=== PATIENT | male | born 1960 | race Caucasian/White ===

== ENCOUNTER 2016-07-25 10:00 | Inpatient (IN) | payer MEDICAID, OTHER ==
[~2016-07-25] VITALS: Ht 177.8 cm; Wt 90.8 kg
[~2016-07-25 10:00] MED LIST: ALLO300T PO; AMLO5TAB2 PO; ATEN50TA41 PO; CIPR500T3 PO; LISI40TA PO; METR500T4 PO; OXYC5CAP4 PO; SPIR50TA2 PO
[2016-07-25] MEDS ORDERED: SODIUM CHLORIDE FLUSH 10ML SYR IVF ONE (12:00)
[2016-07-25] MEDS ORDERED: SODIUM CHLORIDE 0.9% 1,000ML IVBOLUS ONE ×2 (12:00→17:00)
[2016-07-25 12:29] LABS: BLOOD UREA NITROGEN 10 mg/dL (7-18)
[2016-07-25 12:34] LABS: ASPARTATE AMINO TRANSFERASE 13 U/L (15-37)
[2016-07-25] MEDS ORDERED: OMNIPAQUE 350 MG/ML, 100ML BOTTLE ONE (13:18)
[2016-07-25 13:36] LABS: PATH.CAST-FLAG NOT PRESENT; SPERM-FLAG NOT PRESENT; SRC-FLAG NOT PRESENT; XTAL-FLAG NOT PRESENT; YLC-FLAG NOT PRESENT
[2016-07-25] MEDS ORDERED: ATEN-104 PO (14:09)
[2016-07-25] MEDS ORDERED: SODIUM CHLORIDE FLUSH 10ML SYR IVF PRN (14:30)
[2016-07-25] MEDS ORDERED: ONDANSETRON 2MG/ML, 2ML IVPush PRN (15:30)
[2016-07-25] MEDS ORDERED: ACETAMINOPHEN 325 MG TABLET PO PRN (15:30)
[2016-07-25] MEDS ORDERED: morphine SULFATE 10 MG/ML, 1ML IVPush PRN (15:30)
[2016-07-25 15:44] VITALS: BP 134/77
[2016-07-25 17:04] VITALS: BP 134/77
[2016-07-25] MEDS: NS + 20MEQ KCL 1,000 ML IV SCH (17:34)
[2016-07-25] MEDS ORDERED: ENALAPRILAT 1.25 MG/ML, 2ML IVPush PRN (19:30)
[2016-07-25 20:22] VITALS: BP 122/77
[2016-07-25] MEDS: FAMOTIDINE 20 MG/2 ML IVPush SCH (22:05)
[2016-07-26 02:00] VITALS: BP 114/66
[2016-07-26] MEDS: NS + 20MEQ KCL 1,000 ML IV SCH ×3 (03:07→21:00)
[2016-07-26 05:16] LABS: BLOOD UREA NITROGEN 9 mg/dL (7-18)
[2016-07-26 07:50] VITALS: BP 137/80
[2016-07-26] MEDS: AMLODIPINE 5 MG TABLET PO SCH (09:21)
[2016-07-26] MEDS: LISINOPRIL 20 MG TABLET PO SCH (09:21)
[2016-07-26] MEDS: ALLOPURINOL 300 MG TABLET PO SCH (09:22)
[2016-07-26] MEDS: ATENOLOL 50 MG TABLET PO SCH (09:22)
[2016-07-26] MEDS: FAMOTIDINE 20 MG/2 ML IVPush SCH ×2 (09:28→22:55)
[2016-07-26 12:52] VITALS: BP 127/84
[2016-07-26 19:40] VITALS: BP 128/78
[2016-07-26] MEDS: MAGNESIUM HYDROXIDE 8%, 30ML UDC PO SCH (22:55)
[2016-07-27 02:53] VITALS: BP 130/78
[2016-07-27 07:34] VITALS: BP 132/78
[2016-07-27] MEDS: FAMOTIDINE 20 MG/2 ML IVPush SCH ×2 (08:57→21:18)
[2016-07-27] MEDS: ATENOLOL 50 MG TABLET PO SCH (08:58)
[2016-07-27] MEDS: AMLODIPINE 5 MG TABLET PO SCH (09:00)
[2016-07-27] MEDS: ALLOPURINOL 300 MG TABLET PO SCH (09:00)
[2016-07-27] MEDS: LISINOPRIL 20 MG TABLET PO SCH (09:00)
[2016-07-27 12:47] VITALS: BP 103/69
[2016-07-27] MEDS ORDERED: OMNIPAQUE 350 MG/ML, 150 ML BOTTLE ONE (13:03)
[2016-07-27 13:38] VITALS: BP 184/86
[2016-07-27] MEDS: MORPHINE SULFATE 4 MG/ML, 1ML IVPush PRN ×2 (13:43→19:37)
[2016-07-27] MEDS: NS + 20MEQ KCL 1,000 ML IV SCH (19:38)
[2016-07-27 20:23] VITALS: BP 156/79
[2016-07-27] MEDS: MAGNESIUM HYDROXIDE 8%, 30ML UDC PO SCH (21:00)
[2016-07-27 21:26] VITALS: BP 143/83
[2016-07-28] MEDS: MORPHINE SULFATE 4 MG/ML, 1ML IVPush PRN (00:26)
[2016-07-28 03:02] VITALS: BP 126/77
[2016-07-28] MEDS: NS + 20MEQ KCL 1,000 ML IV SCH ×2 (04:56→12:00)
[2016-07-28 08:21] VITALS: BP 124/77
[2016-07-28] MEDS: ATENOLOL 50 MG TABLET PO SCH (09:05)
[2016-07-28] MEDS: ALLOPURINOL 300 MG TABLET PO SCH (09:05)
[2016-07-28] MEDS: LISINOPRIL 20 MG TABLET PO SCH (09:06)
[2016-07-28] MEDS: AMLODIPINE 5 MG TABLET PO SCH (09:06)
[2016-07-28] MEDS: FAMOTIDINE 20 MG/2 ML IVPush SCH (09:06)
== END 2016-07-28 15:00 | disposition home or self-care (01) | DRG 390 ==
LOC: ED 11:45 → EDIP 14:15 → 3NE 15:44
PROVIDERS: ADMIT Family Medicine; ATTEND Family Medicine
DX: K56.60 Unspecified intestinal obstruction (principal); I10 Essential (primary) hypertension; Z93.3 Colostomy status; E10.9 Type 1 diabetes mellitus without complications; Z79.4 Long term (current) use of insulin; E86.0 Dehydration; M10.9 Gout, unspecified; F17.210 Nicotine dependence, cigarettes, uncomplicated; Z98.0 Intestinal bypass and anastomosis status; Z90.49 Acquired absence of other specified parts of digestive tract
CPT/HCPCS: 36415; 74000; 74177; 74250; 80048; 80053; 81001; 83690; 85025; 96360; 96361; J2405; J3480; Q9967; J2270; J7030; S0028

== ENCOUNTER → 2016-08-16 | Outpatient (CLI) | payer MEDICAID ==
[~2016-08-16] MED LIST changes: +ATEN-104 PO
== END ==
LOC: STAR 07:38
PROVIDERS: ATTEND Surgery
DX: Z02.9 Encounter for administrative examinations, unspecified (principal)

== ENCOUNTER 2016-08-23 07:41 | Inpatient (IN) | payer MEDICAID ==
[~2016-08-23] VITALS: Ht 177.8 cm; Wt 85.9 kg
[~2016-08-23 07:41] MED LIST changes: +BUPIVACAINE/PF-EPI 0.5% 1:200K ONE
[2016-08-23 10:38] VITALS: BP 126/81
[2016-08-23] MEDS ORDERED: NEOSTIGMINE 1 MG/ML, 10ML ONE (10:45)
[2016-08-23] MEDS ORDERED: ROCURONIUM 10 MG/ML ONE (10:45)
[2016-08-23] MEDS ORDERED: ONDANSETRON 2MG/ML, 2ML ONE (10:45)
[2016-08-23] MEDS ORDERED: CEFOTETAN 2 GM ONE (10:45)
[2016-08-23] MEDS ORDERED: DEXAMETHASONE 4 MG/ML, 1ML ONE (10:45)
[2016-08-23] MEDS ORDERED: GLYCOPYRROLATE 0.2MG/1ML ONE (10:45)
[2016-08-23] MEDS ORDERED: PROPOFOL 10 MG/ML, 20ML ONE (10:45)
[2016-08-23] MEDS ORDERED: LACTATED RINGERS 1,000 ML IV SCH (10:56)
[2016-08-23] MEDS ORDERED: MIDAZOLAM 1 MG/ML, 2ML ONE (12:11)
[2016-08-23] MEDS ORDERED: FENTANYL PF 250 MCG/5ML ONE (12:11)
[2016-08-23] MEDS ORDERED: hydrALAzine 20 MG/ML, 1ML IV PRN (12:30)
[2016-08-23] MEDS ORDERED: EPHEDRINE 50 MG/ML, 1ML IVPush PRN (12:30)
[2016-08-23] MEDS ORDERED: METOPROLOL 1 MG/ML, 5ML IV PRN (12:30)
[2016-08-23] MEDS ORDERED: LABETALOL 5MG/ML, 20ML IV PRN (12:30)
[2016-08-23] MEDS ORDERED: OXYcodone 5 MG/5 ML ORAL.SOL UDC PO PRN (12:30)
[2016-08-23] MEDS ORDERED: MEPERIDINE/PF 25MG/0.5ML IVPush PRN (12:30)
[2016-08-23] MEDS ORDERED: ACETAMINOPHEN 325 MG TABLET PO PRN (12:30)
[2016-08-23] MEDS ORDERED: ONDANSETRON 2MG/ML, 2ML IVPush PRN ×2 (12:30→16:00)
[2016-08-23] MEDS ORDERED: ALBUTEROL SULFATE 2.5 MG/3 ML NPPB PRN (12:30)
[2016-08-23] MEDS ORDERED: BUPIVACAINE/PF-EPI 0.5% 1:200K ONE (14:17)
[2016-08-23] MEDS ORDERED: INDOCYANINE GREEN 25 MG VIAL IV ONE (14:28)
[2016-08-23] MEDS ORDERED: THROMBIN 5,000 UNIT VIAL TP ONE (14:46)
[2016-08-23] MEDS ORDERED: HYDROmorphone 1 MG/ML, 1ML ONE (15:40)
[2016-08-23] MEDS ORDERED: FENTANYL PF 100 MCG/2ML ONE ×2 (15:40→16:32)
[2016-08-23] MEDS ORDERED: OXYcodone 5 MG/5 ML ORAL.SOL UDC ONE (15:41)
[2016-08-23] MEDS: HYDROmorphone 1 MG/ML, 1ML IV PRN ×3 (15:43→18:21)
[2016-08-23] MEDS ORDERED: ACETAMINOPHEN 325 MG/10.15 ML UDC ONE (15:46)
[2016-08-23] MEDS ORDERED: ACETAMINOPHEN 650 MG/20.3 ML UDC ONE (15:46)
[2016-08-23] MEDS: FENTANYL PF 100 MCG/2ML IV PRN ×6 (15:59→17:06)
[2016-08-23] MEDS ORDERED: DIPHENHYDRAMINE 50 MG/ML, 1ML IV PRN (16:00)
[2016-08-23] MEDS ORDERED: LORazepam 2 MG/ML, 1ML IV PRN (16:00)
[2016-08-23] MEDS ORDERED: ENALAPRILAT 1.25 MG/ML, 2ML IV PRN (16:00)
[2016-08-23] MEDS ORDERED: ACETAMINOPHEN 650 MG/20.3 ML UDC PO PRN (16:00)
[2016-08-23] MEDS ORDERED: INDOCYANINE GREEN 25 MG VIAL ONE (16:12)
[2016-08-23] MEDS: LACTATED RINGERS 1,000 ML IV SCH (18:08)
[2016-08-23] MEDS ORDERED: CEFOTETAN PMX 2GM/50ML 50 ML IVPB SCH (20:00)
[2016-08-23] MEDS: OXYcodone 5 MG/5 ML ORAL.SOL UDC PO PRN (21:47)
[2016-08-23 23:43] VITALS: BP 137/78
[2016-08-24] MEDS: CEFOTETAN PMX 2GM/50ML 50 ML IVPB SCH ×2 (01:53→14:15)
[2016-08-24] MEDS: OXYcodone 5 MG/5 ML ORAL.SOL UDC PO PRN ×6 (01:54→23:36)
[2016-08-24 02:39] VITALS: BP 113/67
[2016-08-24 06:27] LABS: BLOOD UREA NITROGEN 11 mg/dL (7-18)
[2016-08-24 06:30] VITALS: BP 133/78
[2016-08-24] MEDS: AMLODIPINE 5 MG TABLET PO SCH (09:36)
[2016-08-24] MEDS: ATENOLOL 25 MG TABLET PO SCH (09:36)
[2016-08-24] MEDS: ALLOPURINOL 300 MG TABLET PO SCH (09:36)
[2016-08-24] MEDS: ENOXAPARIN 30 MG/0.3 ML SQ SCH ×2 (09:37→21:35)
[2016-08-24] MEDS: LACTATED RINGERS 1,000 ML IV SCH ×2 (09:37→23:38)
[2016-08-24 12:58] VITALS: BP 133/74
[2016-08-24 20:10] VITALS: BP 164/84
[2016-08-24] MEDS: HYDROmorphone 1 MG/ML, 1ML IV PRN (20:15)
[2016-08-24 23:34] VITALS: BP 138/81
[2016-08-25 03:46] VITALS: BP 135/81
[2016-08-25] MEDS: OXYcodone 5 MG/5 ML ORAL.SOL UDC PO PRN ×4 (03:54→20:52)
[2016-08-25 05:33] LABS: BLOOD UREA NITROGEN 7 mg/dL (7-18)
[2016-08-25] MEDS: ENOXAPARIN 30 MG/0.3 ML SQ SCH ×2 (08:41→20:52)
[2016-08-25 09:30] VITALS: BP 166/90
[2016-08-25] MEDS: ATENOLOL 25 MG TABLET PO SCH (10:40)
[2016-08-25] MEDS: ALLOPURINOL 300 MG TABLET PO SCH (10:40)
[2016-08-25] MEDS: AMLODIPINE 5 MG TABLET PO SCH (10:40)
[2016-08-25] MEDS: HYDROmorphone 1 MG/ML, 1ML IV PRN ×2 (10:59→18:03)
[2016-08-25] MEDS: DOCUSATE 100 MG CAPSULE PO SCH ×2 (12:11→20:52)
[2016-08-25 15:09] VITALS: BP 143/72
[2016-08-25] MEDS ORDERED: LACTATED RINGERS 1,000 ML IV SCH (15:31)
[2016-08-25 19:15] VITALS: BP 142/89
[2016-08-26 00:25] VITALS: BP 137/88
[2016-08-26] MEDS: OXYcodone 5 MG/5 ML ORAL.SOL UDC PO PRN ×5 (00:40→21:27)
[2016-08-26 07:30] VITALS: BP 134/78
[2016-08-26] MEDS: AMLODIPINE 5 MG TABLET PO SCH (09:28)
[2016-08-26] MEDS: ALLOPURINOL 300 MG TABLET PO SCH (09:28)
[2016-08-26] MEDS: ATENOLOL 25 MG TABLET PO SCH (09:28)
[2016-08-26] MEDS: DOCUSATE 100 MG CAPSULE PO SCH ×2 (09:28→21:27)
[2016-08-26] MEDS: ENOXAPARIN 30 MG/0.3 ML SQ SCH ×2 (09:33→21:34)
[2016-08-26 12:49] VITALS: BP 140/86
[2016-08-26 20:39] VITALS: BP 152/89
[2016-08-26] MEDS: MAGNESIUM HYDROXIDE 8%, 30ML UDC PO SCH (21:27)
[2016-08-27 00:02] VITALS: BP 151/85
[2016-08-27] MEDS: OXYcodone 5 MG/5 ML ORAL.SOL UDC PO PRN ×5 (01:32→20:08)
[2016-08-27 05:16] VITALS: BP 126/89
[2016-08-27 09:00] VITALS: BP 155/95
[2016-08-27] MEDS: ALLOPURINOL 300 MG TABLET PO SCH (09:02)
[2016-08-27] MEDS: DOCUSATE 100 MG CAPSULE PO SCH ×2 (09:02→21:30)
[2016-08-27] MEDS: AMLODIPINE 5 MG TABLET PO SCH (09:02)
[2016-08-27] MEDS: ATENOLOL 25 MG TABLET PO SCH (09:02)
[2016-08-27] MEDS: METOCLOPRAMIDE 5 MG/ML, 2ML IVPush SCH ×3 (09:05→21:31)
[2016-08-27] MEDS: ENOXAPARIN 30 MG/0.3 ML SQ SCH ×3 (09:06→21:34)
[2016-08-27 14:50] VITALS: BP 155/76
[2016-08-27 19:05] VITALS: BP 135/83
[2016-08-27] MEDS: MAGNESIUM HYDROXIDE 8%, 30ML UDC PO SCH (21:29)
[2016-08-28] MEDS: OXYcodone 5 MG/5 ML ORAL.SOL UDC PO PRN ×5 (00:49→20:11)
[2016-08-28] MEDS: METOCLOPRAMIDE 5 MG/ML, 2ML IVPush SCH ×4 (03:45→21:46)
[2016-08-28 03:52] VITALS: BP 129/86
[2016-08-28 07:37] VITALS: BP 153/77
[2016-08-28] MEDS: DOCUSATE 100 MG CAPSULE PO SCH ×2 (07:54→21:45)
[2016-08-28] MEDS: AMLODIPINE 5 MG TABLET PO SCH (07:54)
[2016-08-28] MEDS: ATENOLOL 25 MG TABLET PO SCH (07:54)
[2016-08-28] MEDS: ALLOPURINOL 300 MG TABLET PO SCH (07:54)
[2016-08-28 08:39] LABS: BLOOD UREA NITROGEN 11 mg/dL (7-18)
[2016-08-28] MEDS: ENOXAPARIN 30 MG/0.3 ML SQ SCH ×2 (09:34→21:00)
[2016-08-28 13:39] VITALS: BP 131/89
[2016-08-28 19:44] VITALS: BP 143/73
[2016-08-28] MEDS: MAGNESIUM HYDROXIDE 8%, 30ML UDC PO SCH (21:46)
[2016-08-29] MEDS: METOCLOPRAMIDE 5 MG/ML, 2ML IVPush SCH ×2 (03:15→08:44)
[2016-08-29 03:24] VITALS: BP 125/79
[2016-08-29] MEDS: OXYcodone 5 MG/5 ML ORAL.SOL UDC PO PRN ×2 (05:53→09:51)
[2016-08-29 06:56] VITALS: BP 147/82
[2016-08-29] MEDS ORDERED: OXYC5SOL8 PO (08:14)
[2016-08-29] MEDS ORDERED: DOCU-30 PO (08:14)
[2016-08-29] MEDS: ENOXAPARIN 30 MG/0.3 ML SQ SCH (08:45)
[2016-08-29] MEDS: ATENOLOL 25 MG TABLET PO SCH (08:45)
[2016-08-29] MEDS: DOCUSATE 100 MG CAPSULE PO SCH (08:45)
[2016-08-29] MEDS: AMLODIPINE 5 MG TABLET PO SCH (08:45)
[2016-08-29] MEDS: ALLOPURINOL 300 MG TABLET PO SCH (08:45)
== END 2016-08-29 11:00 | disposition home or self-care (01) | DRG 345 ==
LOC: ORIP 10:14 → 4NOR 17:13 → DCLOUNGE 08-29 10:00
PROVIDERS: ADMIT Surgery; ATTEND Surgery
PROC: 8E0W4CZ Robotic Assisted Procedure of Trunk Region, Percutaneous Endoscopic Approach (ICD-10-PCS; 2016-08-23)
PROC: 0DSM4ZZ Reposition Descending Colon, Percutaneous Endoscopic Approach (ICD-10-PCS; principal; 2016-08-23 13:00)
DX: Z43.3 Encounter for attention to colostomy (principal); K43.0 Incisional hernia with obstruction, without gangrene; I10 Essential (primary) hypertension; M10.9 Gout, unspecified; Z79.899 Other long term (current) drug therapy
CPT/HCPCS: 36415; 74000; 80048; 82040; 82565; 85025; 88307; C1729; J1100; J1170; J1650; J2250; J2405; J2704; J2710; J3010; J3490; C1765; J2765; J7120; S0074

== ENCOUNTER 2017-02-02 20:40 | Emergency (ER) | payer MEDICAID ==
[~2017-02-02] VITALS: Ht 177.8 cm; Wt 97.4 kg
[~2017-02-02 20:40] MED LIST changes: -BUPIVACAINE/PF-EPI 0.5% 1:200K ONE; +DOCU-131 PO; -METR500T4 PO; +METR500T8 PO; +OXYC5CAP2 PO; -OXYC5CAP4 PO; +OXYC5SOL8 PO
[2017-02-02 21:16] LABS: WHITE BLOOD COUNT 6.3 x10^3/uL (3.4-10)
[2017-02-02 21:25] LABS: ASPARTATE AMINO TRANSFERASE 58 U/L (15-37); BLOOD UREA NITROGEN 9 mg/dL (7-18)
[2017-02-02] MEDS ORDERED: SIMETHICONE 80 MG CHEW TAB PO ONE (22:30)
[2017-02-02] MEDS ORDERED: SIMETHICONE 80 MG CHEW TAB PO PRN (23:30)
[2017-02-03 01:29] VITALS: BP 155/80
== END 2017-02-03 01:32 | disposition home or self-care (01) ==
LOC: ED 23:19
DX: K52.9 Noninfective gastroenteritis and colitis, unspecified (principal); E86.0 Dehydration; E87.1 Hypo-osmolality and hyponatremia; E87.6 Hypokalemia; I10 Essential (primary) hypertension
CPT/HCPCS: 36415; 74022; 80053; 81001; 83690; 85025; 87086; 99285

== ENCOUNTER → 2017-03-16 | Outpatient (CLI) | payer MEDICAID ==
[~2017-03-16] MED LIST changes: +ATEN25TA PO
[2017-03-16 10:28] LABS: ALBUMIN 3.7 g/dL (3.4-5.0); ANION GAP 4 mmol/L (5-15); CHLORIDE 108 mmol/L (98-107)
[2017-03-16 10:31] LABS: ALANINE AMINOTRANSFERASE 46 U/L (12-78); ALKALINE PHOSPHATASE 99 U/L (45-117); BILIRUBIN,TOTAL 0.5 mg/dL (0.2-1.0); CREATININE 1.09 mg/dL (0.7-1.3); TOTAL PROTEIN 7.8 g/dL (6.4-8.2)
== END | disposition home or self-care (01) ==
LOC: STAR 09:27
PROVIDERS: ATTEND Surgery
DX: Z01.818 Encounter for other preprocedural examination (principal); R94.31 Abnormal electrocardiogram [ECG] [EKG]; K43.2 Incisional hernia without obstruction or gangrene; I44.0 Atrioventricular block, first degree
CPT/HCPCS: 36415; 80053; 93005

== ENCOUNTER 2017-03-23 07:04 | Observation (INO) | payer MEDICAID ==
[~2017-03-23] VITALS: Ht 177.8 cm; Wt 106.0 kg
[2017-03-23] MEDS ORDERED: LACTATED RINGERS 1,000 ML IV SCH (07:28)
[2017-03-23 07:51] VITALS: BP 136/88
[2017-03-23] MEDS ORDERED: EPINEPHRINE 1 MG/ML, 1ML ONE (08:34)
[2017-03-23] MEDS ORDERED: BUPIVACAINE/PF 0.5% ONE (08:34)
[2017-03-23] MEDS ORDERED: FENTANYL PF 250 MCG/5ML ONE ×2 (08:40→09:40)
[2017-03-23] MEDS ORDERED: MIDAZOLAM 1 MG/ML, 2ML ONE (08:40)
[2017-03-23] MEDS ORDERED: LABETALOL 5MG/ML, 20ML ONE (08:51)
[2017-03-23] MEDS ORDERED: OXYcodone 5 MG/5 ML ORAL.SOL UDC PO PRN (09:30)
[2017-03-23] MEDS ORDERED: PROMETHAZINE 25 MG/ML, 1ML IV PRN (09:30)
[2017-03-23] MEDS ORDERED: hydrALAzine 20 MG/ML, 1ML IV PRN (09:30)
[2017-03-23] MEDS ORDERED: LORazepam 2 MG/ML, 1ML IVPush PRN (09:30)
[2017-03-23] MEDS ORDERED: LABETALOL 5MG/ML, 20ML IV PRN (09:30)
[2017-03-23] MEDS ORDERED: ALBUTEROL SULFATE 2.5 MG/3 ML NPPB PRN (09:30)
[2017-03-23] MEDS ORDERED: ACETAMINOPHEN 325 MG TABLET PO PRN (09:30)
[2017-03-23] MEDS ORDERED: PROPOFOL 10 MG/ML, 20ML ONE (10:27)
[2017-03-23] MEDS ORDERED: NEOSTIGMINE 1 MG/ML, 10ML ONE (10:27)
[2017-03-23] MEDS ORDERED: CEFAZOLIN 1,000 MG ONE (10:27)
[2017-03-23] MEDS ORDERED: GLYCOPYRROLATE 0.2MG/1ML, 5ML ONE (10:27)
[2017-03-23] MEDS ORDERED: ONDANSETRON 2MG/ML, 2ML ONE (10:27)
[2017-03-23] MEDS ORDERED: DEXAMETHASONE 4 MG/ML, 1ML ONE (10:27)
[2017-03-23] MEDS ORDERED: SUCCINYLCHOLINE 20 MG/ML, 10ML ONE (10:27)
[2017-03-23] MEDS ORDERED: ROCURONIUM 10 MG/ML,10ML ONE (10:27)
[2017-03-23] MEDS: LACTATED RINGERS 1,000 ML IV SCH ×2 (10:41→21:49)
[2017-03-23] MEDS ORDERED: HYDROmorphone 2 MG/ML, 1ML ONE ×2 (10:47→13:14)
[2017-03-23] MEDS ORDERED: FENTANYL PF 100 MCG/2ML ONE (10:47)
[2017-03-23] MEDS: FENTANYL PF 100 MCG/2ML IV PRN ×2 (10:50→11:05)
[2017-03-23] MEDS: HYDROmorphone 1 MG/ML, 1ML IV PRN ×5 (10:55→11:35)
[2017-03-23] MEDS ORDERED: HYDROmorphone 1 MG/ML, 1ML IV PRN (11:00)
[2017-03-23] MEDS ORDERED: DIPHENHYDRAMINE 50 MG/ML, 1ML IV PRN (11:00)
[2017-03-23] MEDS ORDERED: ONDANSETRON 2MG/ML, 2ML IVPush PRN (11:00)
[2017-03-23] MEDS ORDERED: ACETAMINOPHEN 650 MG/20.3 ML UDC PO PRN (11:00)
[2017-03-23] MEDS ORDERED: LORazepam 2 MG/ML, 1ML IV PRN (11:00)
[2017-03-23] MEDS ORDERED: DIPHENHYDRAMINE 50 MG/ML, 1ML ONE (11:32)
[2017-03-23] MEDS ORDERED: ATENOLOL 25 MG TABLET PO SCH (13:00)
[2017-03-23 13:05] VITALS: BP 149/83
[2017-03-23] MEDS: CEFOTETAN PMX 2GM/50ML 50 ML IVPB SCH (15:20)
[2017-03-23] MEDS: ATENOLOL 50 MG TABLET PO SCH (15:21)
[2017-03-23] MEDS: OXYcodone 5 MG/5 ML ORAL.SOL UDC PO PRN ×2 (16:42→22:32)
[2017-03-23] MEDS: KETOROLAC 30 MG/1 ML IV PRN (19:23)
[2017-03-23 19:28] VITALS: BP 142/77
[2017-03-24] VITALS: BP 138/78
[2017-03-24] MEDS: LACTATED RINGERS 1,000 ML IV SCH (01:16)
[2017-03-24] MEDS: KETOROLAC 30 MG/1 ML IV PRN ×2 (01:34→07:32)
[2017-03-24] MEDS: CEFOTETAN PMX 2GM/50ML 50 ML IVPB SCH (02:12)
[2017-03-24 04:16] VITALS: BP 133/67
[2017-03-24 07:01] VITALS: BP 127/76
[2017-03-24] MEDS: OXYcodone 5 MG/5 ML ORAL.SOL UDC PO PRN (07:33)
[2017-03-24] MEDS: ATENOLOL 50 MG TABLET PO SCH (07:39)
[2017-03-24] MEDS ORDERED: AMLODIPINE 5 MG TABLET PO SCH (09:00)
[2017-03-24] MEDS ORDERED: ALLOPURINOL 300 MG TABLET PO SCH (09:00)
== END 2017-03-24 11:06 | disposition home or self-care (01) ==
LOC: OUT 07:04 → ORIP 10:41 → 4NOR 12:45
PROVIDERS: ADMIT Surgery; ATTEND Surgery
DX: K43.2 Incisional hernia without obstruction or gangrene (principal); I10 Essential (primary) hypertension; E66.9 Obesity, unspecified; K56.609 Unspecified intestinal obstruction, unspecified as to partial versus complete obstruction; K57.20 Diverticulitis of large intestine with perforation and abscess without bleeding
CPT/HCPCS: 49654; 96365; 96375; 96376; C1781; G0378; J0171; J0690; J1100; J1170; J1200; J1885; J2250; J2405; J2704; J2710; J3010; J3490; J7120; S0074; J0330